=== PATIENT | male | born 1975 | race Caucasian/White ===

== ENCOUNTER 2023-08-01 13:41 | Emergency (ER) | payer SELFPAY ==
[~2023-08-01] VITALS: Ht 180.3 cm; Wt 131.0 kg
[~2023-08-01 13:41] MED LIST: NAPROSYN500 MG PO
[2023-08-01] MEDS ORDERED: FLEXERIL5 M1 PO (14:33)
[2023-08-01] MEDS ORDERED: NAPROXEN500 MG PO (14:33)
[2023-08-01] MEDS ORDERED: HYDROCO/APAP1 TA9 PO (14:33)
[2023-08-01 14:49] VITALS: BP 167/98
== END 2023-08-01 14:50 | disposition home or self-care (01) | DRG 552 ==
LOC: ED 13:41
DX: M54.41 Lumbago with sciatica, right side (principal); E11.9 Type 2 diabetes mellitus without complications